=== PATIENT | male | born 1960 | race Caucasian/White ===

== ENCOUNTER 2022-06-10 10:05 | Outpatient (CLI) | payer OTHER, SELFPAY | END 2022-06-10 10:06 | disposition home or self-care (01) | LOC: RAD 10:09 | PROVIDERS: PCP Student in an Organized Health Care Education/Training Program; Visit Provider Student in an Organized Health Care Education/Training Program | DX: I50.22 Chronic systolic (congestive) heart failure (principal); I37.8 Other nonrheumatic pulmonary valve disorders | CPT/HCPCS: 93306 ==